=== PATIENT | female | born 1955 | race Caucasian/White ===

== ENCOUNTER 2016-06-27 13:00 | Inpatient (IN) | payer MEDICARE, MEDICAID ==
[~2016-06-27] VITALS: Ht 167.6 cm; Wt 88.5 kg
--- NOTE | ~2016-06-27 | HP ---
PATIENT'S NAME: SARY HOFF [facility] AGE: 61 Y [address] ROOM: [place] [address] LOCATION: ADMIT DATE: 06/28/2016 History & Physical DISCHARGE DATE: FAMILY PHYSICIAN: Carolina Higgins MD ATTENDING PHYSICIAN: Radu Miller DATE OF SERVICE: HISTORY: A 61-year-old female who had a problem with recurrent urinary tract infections over the past 6 months. Her urine is foul smelling. She also has dysuria and burning and positive urines. She has been treated with antibiotics with good response, but has had frequent episodes over the past 6 months. She also has a history of stress incontinence grade 2 with loss of urine with coughing, lifting, bending, walking, or almost any type of daily physical activity. She wears several pads during the day. Apparently, she has had prolapse for the past several years. Her voiding pattern is fairly normal. She has nocturia x2, daytime frequency every 2 to 3 hours. No other history of urinary tract disease or infections. She is a 2, para 2, had a right oophorectomy in the past. She was born in [place], [place] and presently resides in [place]. She is disabled because of arthritis. PAST MEDICAL HISTORY: Illnesses: 1. Hypertension. 2. Hyperlipidemia. 3. Arthritis. OPERATIONS: 1. Lung biopsy. 2. Carpal tunnel. 3. Pelvic lap with oophorectomy. ALLERGIES: ASPIRIN. PHYSICAL EXAMINATION: VITAL SIGNS: 150/84, 197 pounds. CHEST: Clear. HEART: Normal sinus rhythm. PATIENT'S NAME: SARY HOFF [facility] AGE: 61 Y [address] ROOM: [place] [address] LOCATION: ADMIT DATE: 06/28/2016 History & Physical DISCHARGE DATE: FAMILY PHYSICIAN: Carolina Higgins MD ATTENDING PHYSICIAN: Radu Miller ABDOMEN: Soft and obese with no palpable masses. PELVIC: She has normal external genitalia. She has a short mobile urethra with loss of urine with coughing. Residual urine 40 mL. She has significant prolapse of the uterus and bladder down to the introitus. RECTAL: Good sphincter tone. No palpable masses. EXTREMITIES: Negative. IMPRESSION: Stress urinary incontinence. PLAN: Mid urethral sling. MD CHIO DAVIS/magaly /[id number] CC: Carolina Higgins MD D: [id number] T: [id number] HISTORY & PHYSICAL
--- NOTE | ~2016-06-27 | OR ---
PATIENT'S NAME: SARY HOFF [facility] AGE: 61 Y [address] [place] [facility] [place] [place], [place] [address] LOCATION: [facility] [place] ADMIT DATE: 06/28/2016 OR/Procedure Report DISCHARGE DATE: FAMILY PHYSICIAN: Carolina Higgins MD ATTENDING PHYSICIAN: Lacey Little SURGEON: Lacey Little MD SIMULATION ENGINEER: Nesha Foley MD DATE OF PROCEDURE: 06/28/2016 PREOPERATIVE DIAGNOSES: 1. Cystocele. 2. Uterine prolapse. 3. Rectocele. 4. Stress urinary incontinence. POSTOPERATIVE DIAGNOSES: 1. Cystocele. 2. Uterine prolapse. 3. Rectocele. 4. Stress urinary incontinence. PROCEDURES PERFORMED: 1. Total vaginal hysterectomy. 2. Right salpingectomy. 3. Anterior colporrhaphy. 4. Posterior colporrhaphy. BLOOD LOSS: 100 mL. ANESTHESIA: Spinal. DESCRIPTION OF PROCEDURE: The patient was taken to the operating room and placed under spinal anesthetic. Her legs were placed in the Yellofin stirrups. She was prepped and draped. Her bladder was left full. A verbal time-out was undertaken. She was tipped in Trendelenburg. A weighted speculum was placed. The cervix was grasped with the thyroid Teo clamps and was brought down to the level of the introitus. The cervix was injected with dilute Pitressin and circumscribed with a knife. The mucosa was anteriorly and posteriorly advanced. The posterior cul-de-sac and the anterior cul-de- sacs were easily entered. The uterosacral ligaments were clamped, cut, and ligated with 0 Vicryl. The cardinal ligaments were clamped, cut, and ligated with 0 Vicryl. The uterus was delivered posteriorly, and the rest of the broad ligaments were clamped, cut, and ligated with 0 Vicryl. The right tube was easily seen. I was able to remove the right tube. I clamped, cut, and ligated this. The patient thinks her right ovary has been removed. I did not PATIENT'S NAME: SARY HOFF [facility] AGE: 61 Y [address] [place] [facility] [place] [place], [place] [address] LOCATION: [facility] [place] ADMIT DATE: 06/28/2016 OR/Procedure Report DISCHARGE DATE: FAMILY PHYSICIAN: Carolina Higgins MD ATTENDING PHYSICIAN: Lacey Little see a right ovary on that side. Attention was turned to the left tube. There really did not appear to be a tube on the left. If it was, it might just be obliterated. I did not see an ovary on the left. I palpated and did not feel any kind of mass. No surgeries done on the left adnexa. The peritoneum was then closed in a pursestring fashion, exteriorizing the pedicles. The vagina was closed in a [id number] fashion. Attention was turned to the large cystocele. The mucosa was injected with dilute Pitressin, and an anterior incision was made. The cystocele was reduced. Dr. Miller presented and did the sling. The bladder was drained. Traci-Joel plication sutures of 0 Vicryl were used to reduce the cystocele. A lot of excess mucosa was trimmed, and the vagina was closed in a running locking fashion with 2-0 Vicryl. Attention was turned to the small symptomatic rectocele. Dilute Pitressin was used, and incisions made on the posterior vagina. The skin was opened, and the rectocele was dissected. It was reduced with Traci-Joel plication sutures. Excess mucosa was trimmed, and 2-0 Vicryl was used. Support was excellent at this time. The vagina was packed with sulfa cream and a vaginal pack. A Stafford catheter was left to dependent drainage, and the patient went to Recovery in stable condition. LACEY LITTLE MD KHP/modl /[id number] CC: MD Radu Braga MD d: 06/28/16 1902 t: 07/10/16 1646, OPERATIVE SUMMARY
--- NOTE | ~2016-06-27 | DS ---
PATIENT'S NAME: SARY HOFF [facility] AGE: 61 Y [address] ROOM: [facility] [place] [place], [place] [address] LOCATION: [facility] [place] ADMIT DATE: 06/28/2016 Discharge Summary DISCHARGE DATE: 06/30/2016 FAMILY PHYSICIAN: Carolina Higgins MD ATTENDING PHYSICIAN: Lacey Little DIAGNOSES: 1. Stress urinary incontinence. 2. Cystocele. 3. Uterine prolapse. 4. Rectocele. 5. Diabetes type 2. 6. Chronic pain. PROCEDURE: 1. Total vaginal hysterectomy. 2. Right salpingectomy. 3. Anterior and posterior colporrhaphy. 4. Mid-urethral sling. REASON FOR ADMISSION: This is a 61-year-old patient, who is 2, para 2, who presents for surgery for pelvic relaxation. Please see full H and P. HOSPITAL COURSE: The patient was taken to the operating room and under a spinal anesthetic, she had a total vaginal hysterectomy, right salpingectomy, anterior and posterior colporrhaphy, and a suburethral sling. She did not have a right ovary that I could get to. I could also not find her left tube or left ovary. Following surgery, the patient was taken to the floor. The hospitalist followed her medical problems. On postop day #1, her hemoglobin was 12. On postop day #2, her vaginal packing was removed and her Stafford catheter was removed. She passed her voiding trial, so she was discharged to home later in the day. Please see her home medication list. She will follow up with Dr. Little in 2 weeks' time as well as Dr. Miller, and Dr. Little in 6 weeks' time. LACEY LITTLE MD KHP/modl /[id number] d: 07/13/16 0059 t: 07/22/16 0857, DISCHARGE SUMMARY
--- NOTE | ~2016-06-27 | CON ---
PATIENT'S NAME: SARY HOFF [facility] AGE: 61 Y [address] ROOM: [place] [address] [place] [facility] [place] DATE: 06/28/2016 Consultation DISCHARGE DATE: FAMILY PHYSICIAN: Carolina Higgins MD ATTENDING PHYSICIAN: Lacey Little REFERRING PHYSICIAN: Radu Miller MD CHIEF COMPLAINT: Diabetes mellitus, type 2. HISTORY OF PRESENT ILLNESS: The patient is a 61-year-old female with past medical history of bipolar disorder, restless legs syndrome, hypertension, diabetes mellitus, and urinary incontinence, who is here for a total vaginal hysterectomy and right salpingectomy with sling. The patient had the surgical intervention today, postoperative day 0. The patient is currently on MASK INSPECTOR, pain control medications. The patient reports of pain around the surgical incision areas. She denies shortness of breath, chest pain, diarrhea, fever, and chills. The patient reports that she has been diuretic for a while and takes glipizide at home. The patient also is a current smoker. PAST MEDICAL HISTORY: 1. Bipolar disorder. 2. Depression. 3. Restless legs syndrome. 4. GERD. 5. Hyperlipidemia. 6. Diabetes mellitus, type 2. 7. Chronic hypoxic respiratory failure which was same as COPD, on 1 L to 2 L of home oxygen. PAST SURGICAL HISTORY: 1. Lung biopsy. 2. Carpal tunnel repair. 3. Pelvic laparoscopic oophorectomy. FAMILY HISTORY: The patient reports of diabetes mellitus to be prominent in the family. SOCIAL HISTORY: The patient lives with her one son. Currently, is not working. She reports of smoking ever since she was a young kid. ALLERGIES: ASPIRIN. PATIENT'S NAME: KAVYA SARY S [facility] AGE: 61 Y [address] ROOM: [place] [address] LOCATION: [facility] [place] ADMIT DATE: 06/28/2016 Consultation DISCHARGE DATE: FAMILY PHYSICIAN: Carolina Higgins MD ATTENDING PHYSICIAN: Lacey Little MEDICATIONS: Please see MAR. REVIEW OF SYSTEMS: All ten systems were reviewed, and all were negative except what is seen in HPI. PHYSICAL EXAMINATION: VITAL SIGNS: Blood pressure of 163/82, pulse rate of 69, respiratory rate of 15, and temperature of 97.6. GENERAL APPEARANCE: The patient is in mild discomfort secondary to surgical incision pain. Currently on MASK INSPECTOR pump. HEENT: Moist oral mucosa. Extraocular muscles are intact. NECK: Supple. No JVD. LUNGS: Clear to auscultation bilaterally. No rhonchi. No wheezing. No rales. HEART: Regular rate and rhythm. No MRG. No edema. ABDOMEN: Soft, nontender, and nondistended. Bowel sounds were present. Surgical package around vaginal area was present, clean and dry and intact. EXTREMITIES: No edema. NEUROLOGICAL: The patient is somewhat somnolent due to pain. However, wakes and follows commands. She is alert and oriented x3. Motor and sensory were grossly intact. LABORATORY DATA: Creatinine of 1.4, potassium of 3.9, and chloride of 107 with CO2 of 28. ASSESSMENT AND PLAN: 1. Diabetes mellitus, type 2. The patient is currently not eating due to pain associated with nausea. We will discontinue glipizide for now until she regains her appetite. We will start the patient on mild SSI. We will order a.c. and at bedtime Accu-Cheks. 2. Hypertension. The patient's creatinine is noted to mildly increase from 1 to 1.4. Etiology is most likely secondary to Lasix and lisinopril use. We will start the patient on amlodipine and hold diuretics and lisinopril, and continue IV fluids. We will repeat renal function panel tomorrow. 3. Bipolar disease. Continue Lamictal. 4. Depression. Continue Lamictal. 5. Restless legs syndrome. Continue ropinorole. 6. Gastroesophageal reflux disease. We will start the patient on Protonix. 7. Hyperlipidemia. Continue simvastatin. Close to thirty minutes was spent on plan and care. PATIENT'S NAME: SARY HOFF [facility] AGE: 61 Y [address] ROOM: [place] [address] LOCATION: [facility] [place] ADMIT DATE: 06/28/2016 Consultation DISCHARGE DATE: FAMILY PHYSICIAN: Carolina Higgins MD ATTENDING PHYSICIAN: Lacey Little Thank you very much for involving us in the care of this patient. MD GHULAM OJEDA/magaly /[id number] d: 06/29/16 0147 t: 07/02/16 1805, CONSULTATION REPORT
--- NOTE | ~2016-06-27 | OR ---
PATIENT'S NAME: SARY HOFF [facility] AGE: 61 Y [address] ROOM: [place] [address] [place] [facility] [place] DATE: 06/28/2016 OR/Procedure Report DISCHARGE DATE: FAMILY PHYSICIAN: Carolina Higgins MD ATTENDING PHYSICIAN: Lacey Little SURGEON: Thalia Miller MD HYPERION DEVELOPER: DATE OF PROCEDURE: 06/28/2016 PREOPERATIVE DIAGNOSES: 1. Stress urinary incontinence. 2. Pelvic prolapse. POSTOPERATIVE DIAGNOSES: 1. Stress urinary incontinence. 2. Pelvic prolapse. PROCEDURE PERFORMED: Mid-urethral sling. DESCRIPTION OF PROCEDURE: The patient was given anesthetic and then a vaginal hysterectomy was done by Dr. Little. After this portion of the procedure was completed, the vaginal mucosa was dissected off the urethra, bladder neck area. Two small suprapubic incisions were made just lateral to the midline. The [employer] trocar needles were passed down behind the symphysis pubis out immediately adjacent to the midurethral area. The cystoscope was inserted and the bladder was examined to be sure of adequate placement of the needles. The sling was attached to the trocar needles, pulled suprapubically, and positioned in the midurethral area. The ends were divided. The suprapubic incision was closed. The vaginal repair was done by Dr. Little. THALIA MILLER MD EKMaria Eugenia/modl /[id number] d: 06/29/16 0828 t: 06/30/16 0434, OPERATIVE SUMMARY
[2016-06-27] MEDS ORDERED: LASIX20 MG PO (17:29)
[2016-06-27] MEDS ORDERED: ZOCOR40 MG PO (17:29)
[2016-06-27] MEDS ORDERED: LAMICTAL200 MG PO (17:29)
[2016-06-27] MEDS ORDERED: MOBIC15 MG PO (17:30)
[2016-06-27] MEDS ORDERED: GLIPIZIDE XL10 MG PO (17:31)
[2016-06-27] MEDS ORDERED: PRINIVIL OR ZES10 MG PO (17:31)
[2016-06-27] MEDS ORDERED: OMEPRAZOLE40 MG PO (17:32)
[2016-06-27] MEDS ORDERED: REQUIP2 MG PO (17:32)
[2016-06-27] MEDS ORDERED: ZOFRAN ODT4 MG PO (17:33)
[2016-06-27] MEDS ORDERED: TRICOR54 MG PO (17:33)
[2016-06-27] MEDS ORDERED: REGLAN10 MG PO (17:33)
[2016-06-27] MEDS ORDERED: LIORESAL10 MG PO (17:34)
[2016-06-27] MEDS ORDERED: OXYCODONE HCL10 MG PO (17:36)
[2016-06-27] MEDS ORDERED: FLONASE 50 MCG/16 GM NOSE (17:36)
[2016-06-27] MEDS ORDERED: PROVENTIL OR V6.7 GM INH (17:37)
[2016-06-27] MEDS ORDERED: BACTRIM DS1 TAB (17:38)
[2016-06-27] MEDS ORDERED: BACTRIM DS1 TAB PO (17:39)
[2016-06-27] MEDS ORDERED: TRIAMCINOLONE454 GM TOP (17:39)
[2016-06-27] MEDS ORDERED: LORAZEPAM0.5 MG PO (17:40)
[2016-06-27] MEDS ORDERED: COLACE100 MG PO (17:40)
[2016-06-27] MEDS ORDERED: BENADRYL25 MG PO (17:41)
[2016-06-27] MEDS ORDERED: SUDAFED30 MG PO (17:41)
[2016-06-27] MEDS ORDERED: OXYGEN M-15 INH (17:44)
[2016-06-28 08:23] LABS: BASOPHIL # 0.1 K/uL (0.0-0.2); BASOPHIL % 1.2 %; EOSINOPHIL # 0.4 K/uL (0.0-0.5); EOSINOPHIL % 5.2 %; HEMATOCRIT 38.2 % (33.0-46.0); HEMOGLOBIN 12.6 g/dL (10.0-15.0); IMMATURE GRANULOCYTE % 0.1 %; LYMPHOCYTE # 1.9 K/uL (0.8-4.0); LYMPHOCYTE % 27.1 %; MCH 29.7 pg (27.0-34.0); MCV 90.1 fl (83.0-98.0); MONOCYTE # 0.3 K/uL (0.0-1.0); MONOCYTE % 4.5 %; MPV 10.6 fl (9.4-12.4); NEUTROPHIL # (ANC) 4.3 K/uL (1.8-7.8); NEUTROPHIL % 61.9 %; NRBC % 0 /100WBC (0-0.00); PLATELET COUNT 259 K/uL (150-450); RBC 4.24 M/uL (3.50-5.50); RDW-CV 12.1 % (11.9-14.6); WBC 6.9 K/uL (4.0-11.0)
[2016-06-28 08:39] LABS: ALBUMIN 4.2 gm/dL (3.5-5.0); ANION GAP 11.9 (10.0-19.0); CALCIUM 9.1 mg/dL (8.5-10.5); CREATININE 1.4 mg/dL (0.5-1.1); POTASSIUM 3.9 mMol/L (3.7-5.1); TOTAL BILIRUBIN 0.3 mg/dL (0.0-1.5); TOTAL PROTEIN 7.7 g/dL (6.0-8.4)
--- NOTE | 2016-06-28 09:11 | NUR ---
one iv attempt made per daniel ag
--- NOTE | 2016-06-28 09:16 | NUR ---
2 iv attempts made per servando becerrilrn
--- NOTE | 2016-06-28 17:07 | NUR ---
D: PATIENT BLOOD PRESSURE HAS BEEN ELEVATED SINCE RETURN FROM PACU AT 1520. FIRST HOURLY VITAL SIGN WILL BE AT 1900. PATIENT HAS LUCAS TO DEPENDENT DRAINAGE DRAINING YELLOW CLEAR URINE. INCISIONS TO PUBIC AREA APPROXIMAGED WITH STERI STRIPS. BOWEL SOUNDS HYPO ACTIVE PATIENT DID COMPLAIN OF NAUSEA AND ZOFRAN GIVEN AT 1700. PATIENT DOES HAVE HOT TAR ROOFER HELPER, USES WITH ENCOURAGEMENT. TRIED AROMATHERAPY PATIENT REQUESTED IT TO BE DISCONTINUED AFTER 15 MINUTES. PATIENT IS ON 2 LITERS OF O2 PER NASAL CANNULA TO KEEP SAO2 90% OR GREATER AWAKE AND ASLEEP. MARIA FERNANDA PNEUMATICS ON PATIENT TOLERATING WELL.
[2016-06-29 05:12] LABS: BASOPHIL % 0.3 %; EOSINOPHIL # 0.2 K/uL (0.0-0.5); EOSINOPHIL % 1.7 %; HEMATOCRIT 36.7 % (33.0-46.0); HEMOGLOBIN 12.3 g/dL (10.0-15.0); IMMATURE GRANULOCYTE % 0.2 %; LYMPHOCYTE # 1.4 K/uL (0.8-4.0); LYMPHOCYTE % 16.2 %; MCHC 33.5 gm/dL (32.0-36.5); MCV 89.5 fl (83.0-98.0); MONOCYTE # 0.3 K/uL (0.0-1.0); MONOCYTE % 3.8 %; MPV 10.8 fl (9.4-12.4); NEUTROPHIL # (ANC) 6.7 K/uL (1.8-7.8); NEUTROPHIL % 77.8 %; NRBC % 0 /100WBC (0-0.00); PLATELET COUNT 228 K/uL (150-450); RDW-CV 11.9 % (11.9-14.6); WBC 8.6 K/uL (4.0-11.0)
[2016-06-29 05:30] LABS: ALBUMIN 3.3 gm/dL (3.5-5.0); CALCIUM 8.4 mg/dL (8.5-10.5); CREATININE 1.1 mg/dL (0.5-1.1); PHOSPHORUS 2.5 mg/dL (2.5-4.9)
[2016-06-29 05:31] LABS: ANION GAP 10.7 (10.0-19.0); POTASSIUM 3.7 mMol/L (3.7-5.1)
--- NOTE | 2016-06-29 08:12 | NUR ---
Significant Event: AAOX4. REGULAR/ADA DIET. ACHS ACCUCHECKS WITH MILD SS. NO CORRECTIONS FOR HS BS. PHENERGAN IM ADMINISTERED AT 1948 FOR C/O NAUSEA. LUCAS PATENT AND DRAINING WELL. STERI STRIPS TO BILAT SURGICAL SITES BLOOD TINGED, YET INTACT. PT COMPLAINED OF PAIN THROUGH OUT SHIFT DESPITE BEING ON STOVE REFINISHER PUMP. PAIN CONTROL EDUCATION GIVEN DUE TO PT DEPRESSED RESPIRATORY RATE AT 10, SAO2 WOULD DROP TO 88% WHEN PT WOULD FALL ASLEEP AND WOULD GO UP TO 90% WHEN AWOKEN. EASILY AROUSED THOUGH. IS AT BEDSIDE, EDUCATION GIVEN. RT EVALUATED AND EDUCATED WELL. PT ON 2.5L 02 TO KEEP SATS >90%. Follow up: AMBULATION, IS, PAIN CONTROL,
--- NOTE | 2016-06-29 16:45 | NUR ---
Significant Event: Patient is alert and oriented x3. VSS and on 2.5 liters. Does wear O2 at home. Tolerating a regular diet. Saline locked IV fluids. Has ambulated 4 times, needs to go at least one more time. Morphine CASEWORK MANAGER D/C and started on her home dose of oxycodone- relief noted with this. Have given ativan x1 at 1542. Plan to give another dose of oxycodone in the next hour, last before was 1112. Benadryl given x1 for itchiness. Relief was noted. Stafford in place- good urine output- to remove in the early am. Vag packing in place as well- to remove in the early am as well. Two stab sites to pubic area- old bloody drainage noted. Has gone through 1 pad today. L)FA IV, SL. David AC/HS. Cooperative with cares Follow Up: Home tomorrow?
--- NOTE | 2016-06-30 03:30 | NUR ---
Significant Event: A&Ox3, VSS on room air. 1.5L O2 applied at night per home dose. Occasional wheeze in upper lung sounds, clears with cough. Incisions X2 steristrips intact. Denies need for pain medication this shift. Complains of itching, PRN benedryl given. Ambulated X2 in halls this shift. Changed pad with small amount of light pink drainage. Vaginal packing and lakhani to be removed at 0400. IV SL. Pleasant and cooperative with cares. Follow up: Monitor urine output and vaginal bleeding
[2016-06-30 05:59] LABS: ALBUMIN 3.1 gm/dL (3.5-5.0); ANION GAP 9.6 (10.0-19.0); CALCIUM 8.3 mg/dL (8.5-10.5); CREATININE 1.1 mg/dL (0.5-1.1); MAGNESIUM 1.9 mg/dL (1.3-2.6); PHOSPHORUS 3.2 mg/dL (2.5-4.9); POTASSIUM 3.6 mMol/L (3.7-5.1)
--- NOTE | 2016-06-30 13:30 | NUR ---
I have examined the student charting and find it acceptable. Mira CRISTOBAL
--- NOTE | 2016-06-30 13:35 | NUR ---
D: Orders received for the patient to be discharged to home with family. I: Dismissal instructions were prepared and reviewed with the patient virtually. The following information was discussed including Krames teaching sheets provided: Discharge instructions for vaginal hysterectomy, Hysterectomy-surgical procedures, Understanding cystocele (prolapsed bladder), Understanding unilateral salpingo-oophorectomy, Pelvic organ prolapse-surgery for cystocele, stress urinary incontinence-Having a midurethral sling surgery, Discharge instructions-taking your blood pressure and Preventing DVT. Reviewed all follow up apointments that were made in the same day to help with the patient travel time to [place]. R: The patient verbalized understanding of the dismissal education at the time of teaching with no further questions. P: The above information was shared with the primary nurse, charge nurse and the nurses aide that the dismissal education was completed. The patient is ready for discharge to the front door via wheel chair by nursing staff. R:
== END 2016-06-30 14:25 | disposition disaster alternative care site (69) | DRG 742 ==
LOC: GMSU 06-28 07:54
PROVIDERS: Internal Medicine; Physician Assistant; Urology; ADMIT Obstetrics & Gynecology
PROC: 0UT57ZZ Resection of Right Fallopian Tube, Via Natural or Artificial Opening (ICD-10-PCS; principal; 2016-06-28)
PROC: 0JQC0ZZ Repair Pelvic Region Subcutaneous Tissue and Fascia, Open Approach (ICD-10-PCS; principal; 2016-06-28)
PROC: 0UT97ZZ Resection of Uterus, Via Natural or Artificial Opening (ICD-10-PCS; principal; 2016-06-28)
PROC: 0TSD0ZZ Reposition Urethra, Open Approach (ICD-10-PCS; principal; 2016-06-28)
PROC: 0UTC7ZZ Resection of Cervix, Via Natural or Artificial Opening (ICD-10-PCS; principal; 2016-06-28)
DX: N81.3 Complete uterovaginal prolapse (principal); N17.9 Acute kidney failure, unspecified; J96.11 Chronic respiratory failure with hypoxia; N39.46 Mixed incontinence; Z87.440 Personal history of urinary (tract) infections; Z79.2 Long term (current) use of antibiotics; Z90.721 Acquired absence of ovaries, unilateral; M19.90 Unspecified osteoarthritis, unspecified site; Z88.8 Allergy status to other drugs, medicaments and biological substances; I10 Essential (primary) hypertension; E11.9 Type 2 diabetes mellitus without complications; F41.9 Anxiety disorder, unspecified; F17.200 Nicotine dependence, unspecified, uncomplicated; Z79.84 Long term (current) use of oral hypoglycemic drugs; Z79.899 Other long term (current) drug therapy; G25.81 Restless legs syndrome; F31.9 Bipolar disorder, unspecified; Z99.81 Dependence on supplemental oxygen; J44.9 Chronic obstructive pulmonary disease, unspecified; K21.9 Gastro-esophageal reflux disease without esophagitis; E78.5 Hyperlipidemia, unspecified; N14.1 Nephropathy induced by other drugs, medicaments and biological substances; T50.2X5A Adverse effect of carbonic-anhydrase inhibitors, benzothiadiazides and other diuretics, initial encounter; G47.33 Obstructive sleep apnea (adult) (pediatric)
CPT/HCPCS: C2631; J0690; J1170; J1885; J2001; J2250; J2270; J2405; J2550; J3010; J7030